=== PATIENT | male | born 1995 | race Caucasian/White ===

== ENCOUNTER 2024-03-24 15:21 | Emergency (ER) | payer MEDICAID ==
[~2024-03-24] VITALS: Ht 188 cm; Wt 103.7 kg
[2024-03-24 16:48] VITALS: BP 126/76; PULSE 96; TEMP 98.6; O2SAT 100
[2024-03-24] MEDS ORDERED: ONDA-245 PO (19:07)
[2024-03-24] MEDS ORDERED: DIAZ5TAB22 PO (19:07)
[2024-03-24] MEDS ORDERED: BUPR1FIL3 SL (19:07)
[2024-03-24] MEDS ORDERED: CLON0.1T PO (19:07)
[2024-03-24] MEDS: buprenorphine/naloxone 8MG-2MG SUBlingual film SL ONE (19:31)
[2024-03-24 19:34] VITALS: RESP 20
== END 2024-03-24 19:37 | disposition home or self-care (01) ==
LOC: ER 15:22
DX: F11.23 Opioid dependence with withdrawal (principal)
CPT/HCPCS: 99283

== ENCOUNTER 2024-03-29 10:12 | Emergency (ER) | payer MEDICAID ==
[~2024-03-29] VITALS: Ht 190.5 cm; Wt 101.2 kg
[~2024-03-29 10:12] MED LIST: BUPR1FIL3 SL; CLON0.1T PO; DIAZ5TAB22 PO; ONDA-245 PO
[2024-03-29 10:15] VITALS: TEMP 98
[2024-03-29 10:53] LABS: BASOPHILS % (AUTO) 0.4 % (0-1); EOSINOPHILS # (AUTO) 0.3 X10'3 (0-0.9); EOSINOPHILS % (AUTO) 4.1 % (0-6); HEMATOCRIT 43.6 % (42.0-52.0); HEMOGLOBIN 14.5 g/dl (14.0-17.9); LYMPHOCYTES # (AUTO) 2.2 X10'3 (1.1-4.8); LYMPHOCYTES % (AUTO) 27.3 % (21-51); MEAN CORPUSCULAR HEMOGLOBIN 30.9 PG (27.0-31.0); MEAN CORPUSCULAR HGB CONC 33.3 g/dL (33.0-36.5); MEAN CORPUSCULAR VOLUME 92.9 FL (78-98); MEAN PLATELET VOLUME 7.2 FL (7.4-10.4); MONOCYTES # (AUTO) 0.6 X10'3 (0-0.9); MONOCYTES % (AUTO) 7.3 % (2-12); NEUTROPHILS # (AUTO) 4.9 X10'3 (1.8-7.7); NEUTROPHILS % (AUTO) 60.9 % (42-75); PLATELET COUNT 303 X10'3 (140-440); RED CELL DISTRIBUTION WIDTH 12.7 % (11.5-14.5)
[2024-03-29 11:06] LABS: ALANINE AMINOTRANSFERASE 21 U/L (12-78); ALBUMIN 3.5 G/DL (3.4-5.0); ALKALINE PHOSPHATASE 76 IU/L (46-116); ANION GAP 5 (8-16); ASPARTATE AMINO TRANSFERASE 27 U/L (10-37); BILIRUBIN,TOTAL 0.5 MG/DL (0.1-1.0); BLOOD UREA NITROGEN 19 MG/DL (7-18); BUN/CREATININE RATIO 11.4 (10.0-20.0); CALCIUM 8.6 MG/DL (8.5-10.1); CHLORIDE 103 MMOL/L (99-107); CREATININE 1.67 MG/DL (0.60-1.10); ETHANOL < 10 MG/DL (<10); GLUCOSE 114 MG/DL (70-104); POTASSIUM 4.5 MMOL/L (3.5-5.1); SODIUM 138 MMOL/L (135-145); TOTAL CARBON DIOXIDE 29.9 MMOL/L (24-32); eCRCL 79 ML/MIN; eGFR 49 ML/MIN
[2024-03-29 12:03] LABS: URINE AMPHETAMINE SCREEN NEGATIVE (Neg); URINE BARBITUATE SCREEN NEGATIVE (Neg); URINE BENZODIAZEPINES SCREEN POSITIVE (Neg); URINE CANNABINOID SCREEN NEGATIVE (Neg); URINE COCAINE SCREEN NEGATIVE (Neg); URINE METHADONE SCREEN NEGATIVE (Neg); URINE OPIATE SCREEN NEGATIVE (Neg); URINE PHENCYCLIDINE SCREEN NEGATIVE (Neg)
[2024-03-29] MEDS ORDERED: BUPR1FIL3 SL (12:03)
[2024-03-29] MEDS ORDERED: CLON0.1T2 PO (12:03)
[2024-03-29] MEDS: buprenorphine/naloxone 8MG-2MG SUBlingual film SL STA (12:25)
[2024-03-29 12:32] VITALS: BP 106/66; PULSE 76; RESP 18; O2SAT 98
== END 2024-03-29 12:34 | disposition home or self-care (01) ==
LOC: ER 10:14
DX: F11.23 Opioid dependence with withdrawal (principal); Z79.899 Other long term (current) drug therapy
CPT/HCPCS: 36415; 80053; 80305; 80320; 85025; 93005; 99284